=== PATIENT | male | born 1945 ===

== ENCOUNTER 2021-05-08 06:51 | Day surgery (SDC) | payer OTHER ==
[~2021-05-08 06:51] MED LIST: ADULT ASPIRIN81 MG PO; ISORBIDE; SIMVASTA PO; TIROSINT125 MCG PO; VERELAN120 MG PO
[2021-05-08] MEDS ORDERED: PERCOCET 5-3251 EACH PO (11:49)
[2021-05-08] MEDS ORDERED: COLACE100 MG PO (11:50)
== END 2021-05-08 18:30 | disposition home or self-care (01) ==
LOC: CIR.AMB 06:51
PROVIDERS: ATTEND Surgery
DX: K64.4 Residual hemorrhoidal skin tags (principal); K64.8 Other hemorrhoids; Z20.822 Contact with and (suspected) exposure to COVID-19